=== PATIENT | female | born 1990 | race Caucasian/White ===

== ENCOUNTER 2021-04-18 17:01 | Inpatient (IN) ==
[2021-04-18] MEDS ORDERED: SODIUM CHLORIDE 0.9% 1000ML 1,000 ML IV SCH (17:15)
[2021-04-18] MEDS ORDERED: SODIUM CHLORIDE 0.9% 1000ML 1,000 ML IV STA (17:22)
[2021-04-18 17:28] LABS: Hematocrit (blood only) 42.4 % (37-47); Hemoglobin 15.1 g/dL (12.0-16.0); Mean Corpuscular Hemoglobin 33.6 pg (25-34); Mean Corpuscular Hgb Conc 35.6 g/dL (32-36); Mean Corpuscular Volume 94.2 fL (80-100); Mean Platelet Volume 9.6 fL (7.4-10.4); Platelet Count 263 K/uL (130-400); RDW Coefficient of Variation 12.4 % (11.5-14.5); RDW Standard Deviation 42.3 fL (36.4-46.3); White Blood Count 20.04 K/uL (4.8-10.8)
[2021-04-18 17:30] LABS: Base Excess ABG -8.9 mEq/L (-9-1.8); HCO3 ABG 17 mmol/L (19-24); Oxygen Saturation ABG 99.7 % (90-95); PCO2 ABG 37 mmHg (35-46); PO2 ABG 280 mmHg (80-95); pH ABG 7.28 (7.35-7.45)
[2021-04-18 17:41] LABS: Allen Test Pos (Pos)
[2021-04-18 17:43] LABS: Appearance Urine Clear (Clear); Bacteria Urine Automated Negative (Negative); Bilirubin Urine Negative (Negative); Blood Urine Negative (Negative); Color Urine Yellow; Glucose Urine UA 1+ (Negative); Ketones Urine Trace (Negative); Leukocyte Esterase Urine Negative (Negative); Nitrite Urine Negative (Negative); Protein Urine 1+ (Negative); RBC Urine Automated 0-4 /hpf (0-4); Specific Gravity Urine 1.016 (1.000-1.030); Urobilinogen Urine Negative (Negative); pH Urine 5.5 (4.5-7.5)
--- NOTE | 2021-04-18 17:43 | XRay Report ---
XR chest 1V portable CLINICAL HISTORY: Dyspnea TECHNIQUE: Single frontal radiograph of the chest was obtained. Comparison: None available at the time of this dictation. FINDINGS: No lines and tubes are seen. The cardiomediastinal silhouette is normal. The lungs are clear. No evid ence of pleural effusion or pneumothorax. IMPRESSION: No acute chest disease. ACT 112: Negative or not required by law. Electronically signed by: John Sanders M.D. 04/18/2021 5:42 PM
[2021-04-18 17:50] LABS: Pregnancy Test, Serum Negative (Negative)
[2021-04-18 17:51] LABS: Albumin Globulin Ratio 1.4 (0.9-2); Albumin Level 4.2 gm/dl (3.4-5.0); BUN Creatinine Ratio 13.1 (10-20); Bilirubin,Total 0.2 mg/dl (0.2-1.0); Calcium 8.8 mg/dl (8.5-10.1); Creatinine Clr Calc Pharmacy 96.5 ml/min; Est GFR (African American) 105.8 ml/min; Est GFR (Non-African American) 91.3 ml/min; Globulin 3.1 gm/dl (2.5-4.0); Magnesium 2.6 mg/dl (1.7-2.4); Potassium 4.1 mmol/L (3.5-5.1); Total Protein 7.3 gm/dl (6.0-8.3)
--- NOTE | 2021-04-18 17:51 | Emergency Department Note ---
Impression & Plan Toxic effect of carbon monoxide, Hypothermia, AMS (altered mental status), Leukocytosis ED Provider Note INFORMANT: Patient and EMS. Also patient's significant other. ED PROVIDER(S): Cecil Hardy MD CHIEF COMPLAINT: Altered mental status and carbon oxide exposure PLAN: Disposition: Admitted Condition: Good Outpatient prescription management: none Referral: None MEDICAL DECISION MAKING: Patient presented to the emergency department because of altered mental status and carbon monoxide exposure. She was also hypothermic. Upon arrival she was continued on a nonrebreather. Her mental status was improving from initial EMS contact. She had IV fluids administered via fluid warmer. A bear hugger warming blanket was applied. ECG was performed and showed a sinus tachycardia w ithout dysrhythmia. Cardiac monitoring showed no dysrhythmia. The patient was uncomfortable as she needed to urinate. A Sorenson catheter was placed to monitor her urine output and temperature as she was fairly hypothermic. Patient's CBC showed a significant leukocytosis of 20,000 which is likely a stress response Carboxyhemoglobin was low at 1.4 however this was at least 45 minutes or longer on the nonrebreather. Patient's lactate was significant elevated at 5.1. This is likely due to hypoperfusion. COVID-negative. The carboxyhemoglobin was done on an ABG. Lab initially cleared this but then noted they were unsure if processing on arterial blood would make a difference and a repeat venous carboxyhemoglobin was performed. This was 0.4. Was on a nonrebreather that entire time. On reassessment she was feeling much better. No headache or chest pain. No neurologic issues. Further management will be necessary in the hospital to monitor the patient given her significant exposure and hypothermia which has improved significantly with warming. Consultation was made with the [facility] Hospitalist service. Case was discussed and diagnostics were reviewed. The patient was evaluated in the ER and admitted to Dr. Hodges's team. Triage Nursing notes reviewed and agree them. Vital Signs: reviewed and remarkable for tachycardia Differential diagnosis: Carbon monoxide exposure, trauma, infection, hypoglycemia, electrolyte ab normalities, overdose, toxicologic, cardiac sources, intracerebral event, neurologic, trauma, as well as other pathologies. Diagnostics interpreted by me: ECG: Twelve-lead ECG reveals sinus tachycardia [address] elevation or depression. No PACs or PVCs. Normal axis and QRS. Cardiac Monitoring: Cardiac monitoring ordered by me: The patient was placed on continuous cardiac monitoring and observed. It revealed a normal sinus rhythm at 80 beats per minute without ectopy or evidence of dysrhythmia. Imaging studies: Chest x-ray. Findings: A chest x-ray was performed and revealed no pneumothorax, effusion, infiltrate, pulmonary edema, free air under the diaphragm, or wide mediastinum. Impression: No acute disease. HPI: The patient is a 31 year old female with a past medical history of scoliosis who presents to the Emergency Room due to altered mental status and carbon monoxide exposure. The patient was found outside her residence lying in the snow and was altered. EMS was summoned. Apparently a generator was running in the residence in the basement. Fire EMS noted the first floor carbon monoxide reading was 1029. The basement reading was above the upper limits of metering. EMS attended to the patient. She was hypothermic with a core temperature of 92. She was tachycardic and hypotensive. She was altered. They were unable to obtain peripheral IV access but did place an IO in the left humeral head. Patient was given a bolus of IV lidocaine to help with the discomfort of fluid administration. Warm fluids were administered. External warming was initiated. Cardiac monitoring showed a sinus tachycardia. No dysrhythmia per EMS. Patient's blood pressure improved with fluid bolus. She was started immediately on high flow oxygen via nonrebreather. EMS noted the cooximeter measured a concentration of 25% for the patient. She began to be more responsive and interact with EMS. Vital signs improved. Tachycardia imp roved. Upon arrival to the ER the patient was more alert. She was uncomfortable as she noted she needed to urinate but denied any other pain. No significant headache. The patient denies any recent trauma or illness. She does use Suboxone but this is from chronic opioid dependence secondary to s coliosis issues as a child. Patient did note some numbness and tingling in her feet. Any pressure or light touch of the feet. They were very cold to the touch. Noted the patient was unable to feelPatient denies any nausea, vomiting, chest pain, difficulty breathing, recent fever or URI symptoms, diarrhea, or other complaints. ROS: See above HPI for pertinent positives & negatives. A total of 10 systems reviewed and were otherwise negative. PAST MEDICAL HISTORY:See Below , scoliosis PAST SURGICAL HISTORY:See Below, FAMILY HISTORY:See Below SOCIAL HISTORY:See Below, denies illicit drug use HOME MEDICATIONS:See Below ALLERGIES:See Below VITALS:See Below PHYSICAL EXAMINATION: GENERAL: Awake, semi-alert, uncomfortable appearing, anxious and in mild distress HENT: Normocephalic, atraumatic. Oropharynx unremarkable. EYES: Normal conjunctiva. Sclera non-icteric. NECK: Inspection normal. Non-tender. Supple. No nuchal rigidity. FROM. No mass es. RESPIRATORY: Clear to auscultation. No wheezes. No rales. Normal respiratory effort. CARDIAC: Borderline tachycardic rate. Normal rhythm. No murmurs. No rubs. Extremities warm and well perfused. Pulses equal. No JVD. GI: Soft, non-distended. Mild suprapubic tenderness to palpation. No rebound or guarding. No masses. RECTAL: Deferred. MUSCULOSKELETAL: Atraumatic. Chest examination reveals no tenderness. The back is symmetrical on inspection without obvious abnormality. There is no CVA te nderness to palpation. No joint edema. LOWER EXTREMITIES: Cool to the touch. Calves are equal size bilaterally and non-tender. No edema. Mildly cyanotic toes with sluggish cap refill but otherwise no discoloration. No clear evidence of frostbite NEURO: Normal sensorium. No sensory or motor deficits noted. Patient can feel her distal extremities and digits at this point in time. SKIN: No rash or jaundice noted. Cecil Hardy MD Past Med/Surg History Medical History Scoliosis Twin (10/27/13) Surgical History Delivery by section Family History Other Lung disease Seizures Social History (Updated 04/18/21 @ 19:13 by Kenia Saha PA-C) Smoking Status: Current every day smoker packs per day: 0.5; Preferred Language: Turkmen Feels Safe at Home: Yes Allergies Allergies Allergy/AdvReac Type Severity Reaction Status Date / Time No Known Allergies Allergy Verified 04/18/21 18:18 Home Meds Home Medications Medication Instructions Recorded Confirmed buprenorphine 8 mg-naloxone 2 mg 1 film SUBLINGUAL BID 04/18/21 04/18/21 sublingual film Results & Data (ED) Vital Signs Vital Signs - 24 hr 04/18/21 17:01 04/18/21 17:11 04/18/21 17:15 Temperature 32.1 C L Temperature Source Rectal Pulse Rate 81 92 H Pulse Rate [Right Apical] Pulse Rate from SpO2 Sensor Respiratory Rate 32 H 24 Blood Pressure 147/97 H Blood Pressure [Right Arm] Blood Pressure Mean 113 Blood Pressure Mean [Right Arm] Pulse Oximetry Oxygen Delivery Method Oxygen Flow Rate Sepsis New/Unexplained Change in Mental Status Sepsis Action Taken by Nursing 04/18/21 17:20 04/18/21 17:25 04/18/21 17:27 Temperature Temperature Source Pulse Rate 94 H 86 Pulse Rate [Right Apical] 86 Pulse Rate from SpO2 Sensor Respiratory Rate 35 H 24 20 Blood Pressure Blood Pressure [Right Arm] 147/87 H Blood Pressure Mean Blood Pressure Mean [Right Arm] 107 Pulse Oximetry Oxygen Delivery Method Oxygen Flow Rate Sepsis New/Unexplained Change in Mental Status Sepsis Action Taken by Nursing 04/18/21 17:30 04/18/21 17:31 04/18/21 17:35 Temperature 34.4 C L Temperature Source Sorenson Cath ( Temp Sensing) Pulse Rate 88 80 Pulse Rate [Right Apical] 86 Pulse Rate from SpO2 Sensor Respiratory Rate 25 H 21 13 Blood Pressure Blood Pressure [Right Arm] 150/92 H Blood Pressure Mean Blood Pressure Mean [Right Arm] 111 Pulse Oximetry Oxygen Delivery Method Oxygen Flow Rate Sepsis New/Unexplained Change in Mental Status Yes Sepsis Action Taken by Nursing No Action Required 04/18/21 17:40 04/18/21 17:45 04/18/21 17:50 Temperature 35.6 C L 35.7 C L Temperature Source Sorenson Cath ( Temp Sensing) Pulse Rate 82 81 80 Pulse Rate [Right Apical] Pulse Rate from SpO2 Sensor Respiratory Rate 17 22 Blood Pressure 130/91 Blood Pressure [Right Arm] Blood Pressure Mean 104 Blood Pressure Mean [Right Arm] Pulse Oximetry 100 Oxygen Delivery Method Non-rebreather Oxygen Flow Rate 15 Sepsis New/Unexplained Change in Mental Status Sepsis Action Taken by Nursing 04/18/21 17:55 04/18/21 17:56 04/18/21 18:00 Temperature 35.8 C L 35.7 C L Temperature Source Pulse Rate 82 80 Pulse Rate [Right Apical] Pulse Rate from SpO2 Sensor 81 81 Respiratory Rate 19 19 Blood Pressure 130/90 Blood Pressure [Right Arm] Blood Pressure Mean 103 Blood Pressure Mean [Right Arm] Pulse Oximetry 100 100 100 Oxygen Delivery Method Non-rebreather Non-rebreather Non-rebreather Oxygen Flow Rate 15 15 15 Sepsis New/Unexplained Change in Mental Status Sepsis Action Taken by Nursing 04/18/21 18:05 04/18/21 18:08 04/18/21 18:10 Temperature 35.7 C L 35.7 C L Temperature Source Pulse Rate 83 80 Pulse Rate [Right Apical] Pulse Rate from SpO2 Sensor 82 76 Respiratory Rate 19 20 Blood Pressure 123/84 Blood Pressure [Right Arm] Blood Pressure Mean 97 Blood Pressure Mean [Right Arm] Pulse Oximetry 99 99 Oxygen Delivery Method Non-rebreather Non-rebreather Non-rebreather Oxygen Flow Rate 15 15 15 Sepsis New/Unexplained Change in Mental Status Sepsis Action Taken by Nursing 04/18/21 18:15 04/18/21 18:20 04/18/21 18:25 Temperature 35.6 C L 35.5 C L 35.7 C L Temperature Source Pulse Rate 86 85 79 Pulse Rate [Right Apical] Pulse Rate from SpO2 Sensor 84 82 79 Respiratory Rate 22 14 19 Blood Pressure 128/65 Blood Pressure [Right Arm] Blood Pressure Mean 86 Blood Pressure Mean [Right Arm] Pulse Oximetry 100 94 98 Oxygen Delivery Method Non-rebreather Non-rebreather Non-rebreather Oxygen Flow Rate 15 15 15 Sepsis New/Unexplained Change in Mental Status Sepsis Action Taken by Nursing 04/18/21 18:30 04/18/21 18:35 04/18/21 18:40 Temperature 35.6 C L 35.7 C L 35.9 C L Temperature Source Pulse Rate 77 81 80 Pulse Rate [Right Apical] Pulse Rate from SpO2 Sensor 77 80 80 Respiratory Rate 20 16 21 Blood Pressure 111/73 Blood Pressure [Right Arm] Blood Pressure Mean 85 Blood Pressure Mean [Right Arm] Pulse Oximetry 97 96 98 Oxygen Delivery Method Non-rebreather Oxygen Flow Rate 15 Sepsis New/Unexplained Change in Mental Status Sepsis Action Taken by Nursing 04/18/21 18:45 04/18/21 18:58 04/18/21 19:00 Temperature 35.8 C L Temperature Source Pulse Rate 81 81 87 Pulse Rate [Right Apical] Pulse Rate from SpO2 Sensor 81 81 85 Respiratory Rate 22 16 21 Blood Pressure Blood Pressure [Right Arm] Blood Pressure Mean Blood Pressure Mean [Right Arm] Pulse Oximetry 98 96 94 Oxygen Delivery Method Oxymask Oxygen Flow Rate 6 Sepsis New/Unexplained Change in Mental Status Sepsis Action Taken by Nursing Laboratory Data Result diagrams: 04/18/21 17:16 04/18/21 17:16 Lab Results 04/18/21 04/18/21 04/18/21 Range/Units 17:15 17:16 17:16 WBC 20.04 H (4.8-10.8) K/uL RBC 4.50 (4.2-5.4) M/uL Hgb 15.1 (12.0-16.0) g/dL Hct 42.4 (37-47) % MCV 94.2 (80-100) fL MCH 33.6 (25-34) pg MCHC 35.6 (32-36) g/dL RDW Std Deviation 42.3 (36.4-46.3) fL RDW Coeff of Danny 12.4 (11.5-14.5) % Plt Count 263 (130-400) K/uL MPV 9.6 (7.4-10.4) fL Immature Gran % (Auto) 0.9 % Neut % (Auto) 86.1 % Lymph % (Auto) 8.6 % [place] % (Auto) 3.5 % Eos % (Auto) 0.7 % Baso % (Auto) 0.2 % Neut # (Auto) 17.25 H (1.4-6.5) K/uL Lymph # (Auto) 1.72 (1.2-3.4) K/uL [place] # (Auto) 0.70 H (0.11-0.59) K/uL Eos # (Auto) 0.14 (0-0.5) K/uL Baso # (Auto) 0.05 (0-0.2) K/uL Immature Gran # (Auto) 0.18 H (0.00-0.02) K/uL ABG pH 7.28 L (7.35-7.45) ABG pCO2 37 (35-46) mmHg ABG pO2 280 H (80-95) mmHg ABG HCO3 17 L (19-24) mmol/L ABG O2 Saturation 99.7 H (90-95) % ABG Base Excess -8.9 (-9-1.8) mEq/L Jozef Test Pos (Pos) Carboxyhemoglobin % [facility] Barometric Pressure 724.5 mm/Hg Oxygen Given 15L Sodium 137 (136-145) mmol/L Potassium 4.1 (3.5-5.1) mmol/L Chloride 110 H (98-107) mmol/L Carbon Dioxide 16 L (21-32) mmol/L Anion Gap 11 (3-11) BUN 11 (6-23) mg/dl Creatinine 0.84 (0.6-1.2) mg/dl Est Cr Clr Drug Dosing 96.5 ml/min Est GFR ( Amer) 105.8 ml/min Est GFR (Non-Af Amer) 91.3 ml/min BUN/Creatinine Ratio 13.1 (10-20) Glucose 71 (70-99(Fasting)) mg/dl Lactate (0.4-2.0) mmol/L Calcium 8.8 (8.5-10.1) mg/dl Magnesium 2.6 H (1.7-2.4) mg/dl Total Bilirubin 0.2 (0.2-1.0) mg/dl AST 21 (13-39) U/L ALT 15 (7-52) U/L Alkaline Phosphatase 49 (34-104) U/L Troponin I 0.04 (0-0.04) ng/ml Total Protein 7.3 (6.0-8.3) gm/dl Albumin 4.2 (3.4-5.0) gm/dl Globulin 3.1 (2.5-4.0) gm/dl Albumin/Globulin Ratio 1.4 (0.9-2) HCG, Qual (Negative) Urine Color Urine Appearance (Clear) Urine pH (4.5-7.5) Ur Specific [place] (1.000-1.030) Urine Protein (Negative) Urine Glucose (UA) (Negative) Urine Ketones (Negative) Urine Blood (Negative) Urine Nitrite (Negative) Urine Bilirubin (Negative) Urine Urobilinogen (Negative) Ur Leukocyte Esterase (Negative) Urine WBC (Auto) (0-5) /hpf Urine RBC (Auto) (0-4) /hpf U Hyaline Cast (Auto) (0-5) /lpf U Epithel Cells (Auto) (0-5) /lpf Urine Bacteria (Auto) (Negative) Urine Opiates Screen (Neg) Ur Methadone, Qual (Neg) Urine Barbiturates (Neg) Ur Phencyclidine (PCP) (Neg) U Amphetamin/Meth Scrn (Neg) MDMA (Ecstasy) Screen (Neg) U Benzodiazepines Scrn (Neg) Ur Cocaine Metabolite (Neg) U Marijuana (THC) Screen (Neg) SARS-CoV-2, RNA, NAAT (NEGATIVE) 04/18/21 04/18/21 04/18/21 Range/Units 17:16 17:16 17:18 WBC (4.8-10.8) K/uL RBC (4.2-5.4) M/uL Hgb (12.0-16.0) g/dL Hct (37-47) % MCV (80-100) fL MCH (25-34) pg MCHC (32-36) g/dL RDW Std Deviation (36.4-46.3) fL RDW Coeff of Danny (11.5-14.5) % Plt Count (130-400) K/uL MPV (7.4-10.4) fL Immature Gran % (Auto) % Neut % (Auto) % Lymph % (Auto) % [place] % (Auto) % Eos % (Auto) % Baso % (Auto) % Neut # (Auto) (1.4-6.5) K/uL Lymph # (Auto) (1.2-3.4) K/uL [place] # (Auto) (0.11-0.59) K/uL Eos # (Auto) (0-0.5) K/uL Baso # (Auto) (0-0.2) K/uL Immature Gran # (Auto) (0.00-0.02) K/uL ABG pH (7.35-7.45) ABG pCO2 (35-46) mmHg ABG pO2 (80-95) mmHg ABG HCO3 (19-24) mmol/L ABG O2 Saturation (90-95) % ABG Base Excess (-9-1.8) mEq/L Jozef Test (Pos) Carboxyhemoglobin 1.4 % THgb Barometric Pressure mm/Hg Oxygen Given Sodium (136-145) mmol/L Potassium (3.5-5.1) mmol/L Chloride (98-107) mmol/L Carbon Dioxide (21-32) mmol/L Anion Gap (3-11) BUN (6-23) mg/dl Creatinine (0.6-1.2) mg/dl Est Cr Clr Drug Dosing ml/min Est GFR ( Amer) ml/min Est GFR (Non-Af Amer) ml/min BUN/Creatinine Ratio (10-20) Glucose (70-99(Fasting)) mg/dl Lactate 5.1 H* (0.4-2.0) mmol/L Calcium (8.5-10.1) mg/dl Magnesium (1.7-2.4) mg/dl Total Bilirubin (0.2-1.0) mg/dl AST (13-39) U/L ALT (7-52) U/L Alkaline Phosphatase (34-104) U/L Troponin I (0-0.04) ng/ml Total Protein (6.0-8.3) gm/dl Albumin (3.4-5.0) gm/dl Globulin (2.5-4.0) gm/dl Albumin/Globulin Ratio (0.9-2) HCG, Qual Negative (Negative) Urine Color Urine Appearance (Clear) Urine pH (4.5-7.5) Ur Specific [place] (1.000-1.030) Urine Protein (Negative) Urine Glucose (UA) (Negative) Urine Ketones (Negative) Urine Blood (Negative) Urine Nitrite (Negative) Urine Bilirubin (Negative) Urine Urobilinogen (Negative) Ur Leukocyte Esterase (Negative) Urine WBC (Auto) (0-5) /hpf Urine RBC (Auto) (0-4) /hpf U Hyaline Cast (Auto) (0-5) /lpf U Epithel Cells (Auto) (0-5) /lpf Urine Bacteria (Auto) (Negative) Urine Opiates Screen (Neg) Ur Methadone, Qual (Neg) Urine Barbiturates (Neg) Ur Phencyclidine (PCP) (Neg) U Amphetamin/Meth Scrn (Neg) MDMA (Ecstasy) Screen (Neg) U Benzodiazepines Scrn (Neg) Ur Cocaine Metabolite (Neg) U Marijuana (THC) Screen (Neg) SARS-CoV-2, RNA, NAAT (NEGATIVE) 04/18/21 04/18/21 04/18/21 Range/Units 17:20 17:20 17:55 WBC (4.8-10.8) K/uL RBC (4.2-5.4) M/uL Hgb (12.0-16.0) g/dL Hct (37-47) % MCV (80-100) fL MCH (25-34) pg MCHC (32-36) g/dL RDW Std Deviation (36.4-46.3) fL RDW Coeff of Danny (11.5-14.5) % Plt Count (130-400) K/uL MPV (7.4-10.4) fL Immature Gran % (Auto) % Neut % (Auto) % Lymph % (Auto) % [place] % (Auto) % Eos % (Auto) % Baso % (Auto) % Neut # (Auto) (1.4-6.5) K/uL Lymph # (Auto) (1.2-3.4) K/uL [place] # (Auto) (0.11-0.59) K/uL Eos # (Auto) (0-0.5) K/uL Baso # (Auto) (0-0.2) K/uL Immature Gran # (Auto) (0.00-0.02) K/uL ABG pH (7.35-7.45) ABG pCO2 (35-46) mmHg ABG pO2 (80-95) mmHg ABG HCO3 (19-24) mmol/L ABG O2 Saturation (90-95) % ABG Base Excess (-9-1.8) mEq/L Jozef Test (Pos) Carboxyhemoglobin % THgb Barometric Pressure mm/Hg Oxygen Given Sodium (136-145) mmol/L Potassium (3.5-5.1) mmol/L Chloride (98-107) mmol/L Carbon Dioxide (21-32) mmol/L Anion Gap (3-11) BUN (6-23) mg/dl Creatinine (0.6-1.2) mg/dl Est Cr Clr Drug Dosing ml/min Est GFR ( Amer) ml/min Est GFR (Non-Af Amer) ml/min BUN/Creatinine Ratio (10-20) Glucose (70-99(Fasting)) mg/dl Lactate (0.4-2.0) mmol/L Calcium (8.5-10.1) mg/dl Magnesium (1.7-2.4) mg/dl Total Bilirubin (0.2-1.0) mg/dl AST (13-39) U/L ALT (7-52) U/L Alkaline Phosphatase (34-104) U/L Troponin I (0-0.04) ng/ml Total Protein (6.0-8.3) gm/dl Albumin (3.4-5.0) gm/dl Globulin (2.5-4.0) gm/dl Albumin/Globulin Ratio (0.9-2) HCG, Qual (Negative) Urine Color Yellow Urine Appearance Clear (Clear) Urine pH 5.5 (4.5-7.5) Ur Specific [place] 1.016 (1.000-1.030) Urine Protein 1+ H (Negative) Urine Glucose (UA) 1+ H (Negative) Urine Ketones Trace H (Negative) Urine Blood Negative (Negative) Urine Nitrite Negative (Negative) Urine Bilirubin Negative (Negative) Urine Urobilinogen Negative (Negative) Ur Leukocyte Esterase Negative (Negative) Urine WBC (Auto) 1-5 (0-5) /hpf Urine RBC (Auto) 0-4 (0-4) /hpf U Hyaline Cast (Auto) 5-10 H (0-5) /lpf U Epithel Cells (Auto) 5-10 H (0-5) /lpf Urine Bacteria (Auto) Negative (Negative) Urine Opiates Screen Neg (Neg) Ur Methadone, Qual Neg (Neg) Urine Barbiturates Neg (Neg) Ur Phencyclidine (PCP) Neg (Neg) U Amphetamin/Meth Scrn Pos H (Neg) MDMA (Ecstasy) Screen Neg (Neg) U Benzodiazepines Scrn Neg (Neg) Ur Cocaine Metabolite Neg (Neg) U Marijuana (THC) Screen Neg (Neg) SARS-CoV-2, RNA, NAAT NEGATIVE (NEGATIVE) 04/18/21 Range/Units 18:05 WBC (4.8-10.8) K/uL RBC (4.2-5.4) M/uL Hgb (12.0-16.0) g/dL Hct (37-47) % MCV (80-100) fL MCH (25-34) pg MCHC (32-36) g/dL RDW Std Deviation (36.4-46.3) fL RDW Coeff of Danny (11.5-14.5) % Plt Count (130-400) K/uL MPV (7.4-10.4) fL Immature Gran % (Auto) % Neut % (Auto) % Lymph % (Auto) % [place] % (Auto) % Eos % (Auto) % Baso % (Auto) % Neut # (Auto) (1.4-6.5) K/uL Lymph # (Auto) (1.2-3.4) K/uL [place] # (Auto) (0.11-0.59) K/uL Eos # (Auto) (0-0.5) K/uL Baso # (Auto) (0-0.2) K/uL Immature Gran # (Auto) (0.00-0.02) K/uL ABG pH (7.35-7.45) ABG pCO2 (35-46) mmHg ABG pO2 (80-95) mmHg ABG HCO3 (19-24) mmol/L ABG O2 Saturation (90-95) % ABG Base Excess (-9-1.8) mEq/L Jozef Test (Pos) Carboxyhemoglobin 0.4 % THgb Barometric Pressure mm/Hg Oxygen Given Sodium (136-145) mmol/L Potassium (3.5-5.1) mmol/L Chloride (98-107) mmol/L Carbon Dioxide (21-32) mmol/L Anion Gap (3-11) BUN (6-23) mg/dl Creatinine (0.6-1.2) mg/dl Est Cr Clr Drug Dosing ml/min Est GFR ( Amer) ml/min Est GFR (Non-Af Amer) ml/min BUN/Creatinine Ratio (10-20) Glucose (70-99(Fasting)) mg/dl Lactate (0.4-2.0) mmol/L Calcium (8.5-10.1) mg/dl Magnesium (1.7-2.4) mg/dl Total Bilirubin (0.2-1.0) mg/dl AST (13-39) U/L ALT (7-52) U/L Alkaline Phosphatase (34-104) U/L Troponin I (0-0.04) ng/ml Total Protein (6.0-8.3) gm/dl Albumin (3.4-5.0) gm/dl Globulin (2.5-4.0) gm/dl Albumin/Globulin Ratio (0.9-2) HCG, Qual (Negative) Urine Color Urine Appearance (Clear) Urine pH (4.5-7.5) Ur Specific [place] (1.000-1.030) Urine Protein (Negative) Urine Glucose (UA) (Negative) Urine Ketones (Negative) Urine Blood (Negative) Urine Nitrite (Negative) Urine Bilirubin (Negative) Urine Urobilinogen (Negative) Ur Leukocyte Esterase (Negative) Urine WBC (Auto) (0-5) /hpf Urine RBC (Auto) (0-4) /hpf U Hyaline Cast (Auto) (0-5) /lpf U Epithel Cells (Auto) (0-5) /lpf Urine Bacteria (Auto) (Negative) Urine Opiates Screen (Neg) Ur Methadone, Qual (Neg) Urine Barbiturates (Neg) Ur Phencyclidine (PCP) (Neg) U Amphetamin/Meth Scrn (Neg) MDMA (Ecstasy) Screen (Neg) U Benzodiazepines Scrn (Neg) Ur Cocaine Metabolite (Neg) U Marijuana (THC) Screen (Neg) SARS-CoV-2, RNA, NAAT (NEGATIVE) Administered Medications Sodium Chloride (Nss 1000ml) 1,000 mls @ 200 mls/hr IV .Q5H STA Stop: 04/18/21 22:21 Last Admin: 04/18/21 17:59 Dose: 200 mls/hr Documented by: [id number] Discontinued Medications Sodium Chloride (Nss 1000ml) 1,000 mls @ 999 mls/hr IV .Q1H1M GLENN Stop: 04/18/21 18:15 Last Admin: 04/18/21 18:30 Dose: Not Given Documented by: [id number] Imaging Data Radiologist's Impression: Chest X-Ray 04/18/21 17:03 XR chest 1V portable CLINICAL HISTORY: Dyspnea TECHNIQUE: Single frontal radiograph of the chest was obtained. Comparison: None available at the time of this dictation. FINDINGS: No lines and tubes are seen. The cardiomediastinal silhouette is normal. The lungs are clear. No evidence of pleural effusion or pneumothorax. IMPRESSION: No acute chest disease. ACT 112: Negative or not required by law. Electronically signed by: John Sanders M.D. 04/18/2021 5:42 PM Discharge Plan Visit Data Chief Complaint: Carbon Monoxide Exposure Stated Complaint: Carbon Monoxide Exposure ED Provider: Cecil Hardy Discharge Problem: Toxic effect of carbon monoxide, Hypothermia, AMS (altered mental status), Leukocytosis Forms Stand Alone Forms: My [facility] Prescriptions Prescriptions: No Action buprenorphine-naloxone 8-2 mg film 1 film sublingual BID RF: 0 Referrals Referrals: PCP,NO [Primary Care Provider] -
[2021-04-18 17:52] LABS: Troponin I 0.04 ng/ml (0-0.04)
[2021-04-18 17:53] LABS: Basophils # (auto) 0.05 K/uL (0-0.2); Basophils % (auto) 0.2 %; Eosinophils # (auto) 0.14 K/uL (0-0.5); Eosinophils % (auto) 0.7 %; Immature Granulocytes # (auto) 0.18 K/uL (0.00-0.02); Immature Granulocytes % (auto) 0.9 %; Lymphocytes # (auto) 1.72 K/uL (1.2-3.4); Lymphocytes % (auto) 8.6 %; Monocytes % (auto) 3.5 %; Neutrophils # (auto) 17.25 K/uL (1.4-6.5); Neutrophils % (auto) 86.1 %
[2021-04-18 18:18] LABS: Amphetamines+Metham, Urine Pos (Neg); Barbiturates, Urine Neg (Neg); Benzodiazepine, Urine Neg (Neg); Cocaine, Urine Neg (Neg); MDMA (Ecstacy), Urine Neg (Neg); Methadone, Urine Neg (Neg); Opiate, Urine Neg (Neg); Phencyclidine, Urine Neg (Neg)
--- NOTE | 2021-04-18 18:38 | History & Physical Report ---
Date of Service April 18, 2021 Assessment & Plan (1) AMS (altered mental status): (2) Toxic effect of carbon monoxide: (3) Syncope: Plan: This is a 31yo F with a PMH of scoliosis, tobacco use who presents with AMS in setting of carbon monoxide exposure. Carbon monoxide exposure from basement with generator running indoors Patient went outside once she became dizzy and had syncopal event, found lying in the snow, minimally responsive EMS noted the cooximeter measured a concentration of 25% for the patient Mentation and vitals have improved on non-rebreather and is back to mentation baseline Leukocytosis of 20, initial ABG pH of 7.28, lactate of 5 ECG with sinus tachycardia of 106, troponin negative Repeat carboxyhemoglobin improved to 0.4%, transitioned to oxymask 6L (4) Hypothermia: Plan: Initial core temperature of 33.3 C when found in snow. Improved with warming fluids, now 35.7 C [address] hugger in place, continue monitoring (5) Lactic acidosis: (6) Leukocytosis: Plan: Lactate of 5.1, leukocytosis of 14. Likely reactive given CO, hypothermia, hypoperfusion No clinical concern for infection - CXR without acute process, UA unremarkable. No indication for abx at this time Repeat lactate this evening, wbc in AM (7) Scoliosis: Plan: Continue home Suboxone BID DVT Ppx: han eden Code status: FULL PCP: Kristel Dispo: Admitted to PCU Patient seen in collaboration with Dr. Da Silva. Please see addendum. History of Present Illness Chief Complaint: CO exposure Primary Care Provider: NO PCP This is a 31yo F with a PMH of scoliosis, tobacco use who presents with AMS in setting of carbon monoxide exposure. The patient was dropped off at a friend's house earlier today, which had a generator running indoors in the basement. Patient is unsure how long she was inside before becoming lightheaded with visual changes, at which point she ran outside into the snow and lost con sciousness. Patient is unsure how low she was lying in the snow before she came to and walked to a neighbors house, who called EMS due to her altered state. Was initially hypothermic with a core temperature of 92 as well as tachycardic and hypotensive. EMS noted the cooximeter measured a concentration of 25% for the patient. Vital signs improved with non-rebreather and administration of warm fluids. Mentation was better by time of arrival and is back to baseline by time of evaluation. BP and HR now within normal range. Patient is saturation at 98% on 15 L non-rebreather. Currently denies headache or lightheadedness. No fever or chills. No chest pain, palpitations, nausea, vomiting, abdominal pain, dysuria, diarrhea or constipation. No recent illness. Only home medication is Suboxone, which she takes for history of scoliosis. Allergies Allergy/AdvReac Type Severity Reaction Status Date / Time No Known Allergies Allergy Verified 04/18/21 18:18 Home Medications Medication Instructions Recorded Confirmed Type buprenorphine 8 mg-naloxone 2 mg 1 film SUBLINGUAL BID 04/18/21 04/18/21 History sublingual film Past Med/Surg History Medical History Scoliosis Twin (10/27/13) Surgical History Delivery by section Family History Other Lung disease Seizures Social History (Updated 04/18/21 @ 19:13 by Kenia Saha PA-C) Smoking Status: Current every day smoker packs per day: 0.5; Second Hand Exposure: No; Do You Dip or Chew Tobacco: No; Tobacco Cessation Education Requested by Patient: No Hx Alcohol Use: Yes Hx Substance Use: No Preferred Language: Georgian Communication Ability: Effective Dot Compliance Specialist Required: No Beliefs That Will Affect Care: None Current Living Situation: Other Current Living Situation Comment: Friend Other Information That Helps Us Care for You: No Feels Safe at Home: Yes Safety Concerns: Feels Safe At This Time Review of Systems Review of Systems: At least ten systems reviewed and negative except as noted in the HPI. Physical Exam Physical Exam: General Appearance: WD/WN, vitals as above, NAD, sitting up in bed, pleasant, conversing easily, wearing non-rebreather Head: normocephalic, atraumatic Eyes: normal inspection, PERRL, conjunctivae normal, anicteric sclerae ENT: external ear and nose normal, oropharynx normal Neck: normal visual inspection, trachea midline, no thyromegaly Respiratory: normal respiratory effort, lungs clear to auscultation, no wheeze, rales, rhonchi. No accessory muscle use Cardiovascular: regular rate, rhythm, no murmur, normal peripheral pulses, no BLE edema. Vessels: no JVD Chest: normal inspection of chest Abdomen/GI: normal bowel sounds, soft, nontender, no hepatosplenomegaly Extremities/Musculoskeletal: no cyanosis or clubbing, extremities motor strength 5/5 Neurologic: PERRL, EOMI, accommodation nl, no face palsy, no dysarthria, CN's II-XI intact bilaterally and moves all extremities Psychiatric: A+Ox3, euthymic affect Skin: no rashes, normal color, warm/dry Results & Data Results & Data ([facility]) Vital Signs (Past 12 Hours) Vital Signs Temp Pulse Pulse Resp BP BP Pulse Ox 04/18/21 18:15 35.6 C L 86 22 100 04/18/21 18:10 35.7 C L 80 20 123/84 99 04/18/21 18:05 35.7 C L 83 19 99 04/18/21 18:00 35.7 C L 80 19 130/90 100 04/18/21 17:56 100 04/18/21 17:55 35.8 C L 82 19 100 04/18/21 17:50 35.7 C L 80 22 130/91 100 04/18/21 17:45 35.6 C L 81 17 04/18/21 17:40 82 23 04/18/21 17:35 80 13 04/18/21 17:31 86 21 150/92 H 04/18/21 17:30 34.4 C L 88 25 H 04/18/21 17:27 86 20 147/87 H 04/18/21 17:25 86 24 04/18/21 17:20 94 H 35 H 04/18/21 17:15 92 H 24 147/97 H 04/18/21 17:11 81 32 H 04/18/21 17:01 32.1 C L Laboratory Results Short CBC 04/18/21 Range/Units 17:16 WBC 20.04 H (4.8-10.8) K/uL Hgb 15.1 (12.0-16.0) g/dL Hct 42.4 (37-47) % Plt Count 263 (130-400) K/uL BMP 04/18/21 17:16 Sodium 137 Potassium 4.1 Chloride 110 H Carbon Dioxide 16 L BUN 11 Creatinine 0.84 Glucose 71 Calcium 8.8 Cardiac Enzymes 04/18/21 Range/Units 17:16 Troponin I 0.04 (0-0.04) ng/ml Liver Function 04/18/21 Range/Units 17:16 Total Bilirubin 0.2 (0.2-1.0) mg/dl AST 21 (13-39) U/L ALT 15 (7-52) U/L Alkaline Phosphatase 49 (34-104) U/L Albumin 4.2 (3.4-5.0) gm/dl Urine 04/18/21 Range/Units 17:20 Urine Color Yellow Urine Appearance Clear (Clear) Urine pH 5.5 (4.5-7.5) Ur Specific [place] 1.016 (1.000-1.030) Urine Protein 1+ H (Negative) Urine Glucose (UA) 1+ H (Negative) Diagnostic Findings Chest X-Ray 04/18/21 17:03 XR chest 1V portable CLINICAL HISTORY: Dyspnea TECHNIQUE: Single frontal radiograph of the chest was obtained. Comparison: None available at the time of this dictation. FINDINGS: No lines and tubes are seen. The cardiomediastinal silhouette is normal. The lungs are clear. No evidence of pleural effusion or pneumothorax. IMPRESSION: No acute chest disease. ACT 112: Negative or not required by law. Electronically signed by: John Sanders M.D. 04/18/2021 5:42 PM ECG Additional Comments: sinus tachycardia at 106 bpm Code Status & VTE Plan VTE Prophylaxis Plan VTE Prophylaxis will be ordered: Yes Supervising Physician Co-Signing Physician Notes Care coordinated with Kenia Saha PA-C. Agree with above note. Patient seen and examined. Please refer to her notes for full details. Vital signs reviewed. Physical exam: General exam: Alert and oriented. Not in acute distress. CVS: S1 and S2 heard, regular rate and rhythm, no murmurs. RS: Clear to auscultation, no wheezing or crackles. ABD: Soft, bowel sounds present, nontender, no distention. ELECTRIC MOTOR REPAIRING SUPERVISOR: Nonfocal. EXT: No edema, no erythema. Labs: Reviewed. Assessment and plan: 31F who [address] There was generator in basement. Patient felt lightheaded and visual changes she ran out but seems lost consciousness and layed on the snow for sometime, then she went to neighbour's house. Seemed confused. EMS was called and cooximeter measured 25%. She was placed on non breather and brought to Er. She was hypothermic . Improved with warm fluids and sailaja hugger. Lactic acid on presentation 5.1. Carboxyhemoglobin in ER improved to 0.4%.Currently alert and awake and oriented. Says she had chest pain earlier but that improved. Currently no sob, no headache. no cough. Hemodynamics stable.Exam: Cvs 1 and s2 heard no murmurs, RS cta b/l no added sounds, ABd Benign, ELECTRIC MOTOR REPAIRING SUPERVISOR non focal, Ext no edema or erythema. To continue oxygen supplementation and supportive care. Repeat lactic acid 0.7. Monitor in tele. Other diagnosis and plan of care as per Kenia Saha PA-C. Joshua pride MD.
[2021-04-18] MEDS ORDERED: ONDANSETRON INJ 2 MG/ML 2 ML VIAL IV PRN (21:46)
[2021-04-18] MEDS ORDERED: POLYETHYLENE (MIRALAX) 17 GM PACK PO PRN (21:46)
[2021-04-18] MEDS ORDERED: ACETAMINOPHEN 325 MG TAB PO PRN (21:46)
[2021-04-18] MEDS: BUPRENORPHINE/NALOXONE 8/2 MG TAB SL SCH (22:14)
[2021-04-19 05:44] LABS: Hematocrit (blood only) 38.1 % (37-47); Hemoglobin 13.1 g/dL (12.0-16.0); Mean Corpuscular Hemoglobin 32.9 pg (25-34); Mean Corpuscular Hgb Conc 34.4 g/dL (32-36); Mean Corpuscular Volume 95.7 fL (80-100); Mean Platelet Volume 9.4 fL (7.4-10.4); Platelet Count 232 K/uL (130-400); RDW Coefficient of Variation 12.8 % (11.5-14.5); RDW Standard Deviation 44.4 fL (36.4-46.3); Red Blood Count 3.98 M/uL (4.2-5.4); White Blood Count 7.02 K/uL (4.8-10.8)
[2021-04-19 05:56] LABS: BUN Creatinine Ratio 15.2 (10-20); Calcium 8.6 mg/dl (8.5-10.1); Creatinine Clr Calc Pharmacy 122.8 ml/min; Est GFR (African American) 134.5 ml/min; Est GFR (Non-African American) 116.1 ml/min; Potassium 4.3 mmol/L (3.5-5.1)
[2021-04-19] MEDS: BUPRENORPHINE/NALOXONE 8/2 MG TAB SL SCH (09:46)
--- NOTE | 2021-04-19 09:48 | Electrocardiogram Report ---
Test Reason : Blood Pressure : / mmHG Vent. Rate : 106 BPM Atrial Rate : 106 BPM P-R Int : 144 ms QRS Dur : 084 ms QT Int : 360 ms P-R-T Axes : 058 070 073 degrees QTc Int : 478 ms Sinus tachycardia Otherwise normal ECG No previous ECGs available Confirmed by Taran Ga ([id number]) on 04/19/2021 9:47:53 AM Referred By: REFERRED SELF Confirmed By:Antione Ga
--- NOTE | 2021-04-19 10:12 | Discharge Summary ---
Date of Service April 19, 2021 Admission HPI Per Admitting Provider This is a 31yo F with a PMH of scoliosis, tobacco use who presents with AMS in setting of carbon monoxide exposure. The patient was dropped off at a friend's house earlier today, which had a generator running indoors in the basement. Patient is unsure how long she was inside before becoming lightheaded with visual changes, at which point she ran outside into the snow and lost consciousness. Patient is unsure how low she was lying in the snow before she came to and walked to a neighbors house, who called EMS due to her altered state. Was initially hypothermic with a core temperature of 92 as well as tachycardic and hypotensive. EMS noted the cooximeter measured a concentration of 25% for the patient. Vital signs improved with non-rebreather and administration of warm fluids. Mentation was better by time of arrival and is back to baseline by time of evaluation. BP and HR now within normal range. Patient is saturation at 98% on 15 L non-rebreather. Currently denies headache or lightheadedness. No fever or chills. No chest pain, palpitations, nausea, vomiting, abdominal pain, dysuria, diarrhea or constipation. No recent illness. Only home medication is Suboxone, which she takes for history of scoliosis. Admission Exam Per Admitting Provider General Appearance:WD/WN, vitals as above, NAD, sitting up in bed, pleasant, conversing easily, wearing non-rebreather Head: normocephalic, atraumatic Eyes:normal inspection, PERRL, conjunctivae normal, anicteric sclerae ENT: external ear and nose normal, oropharynx normal Neck: normal visual inspection, trachea midline, no thyromegaly Respiratory:normal respiratory effort, lungs clear to auscultation, no wheeze, rales, rhonchi. No accessory muscle use Cardiovascular: regular rate, rhythm, no murmur, normal peripheral pulses, no BLE edema. Vessels: no JVD Chest: normal inspection of chest Abdomen/GI: normal bowel sounds, soft, nontender, no hepatosplenomegaly Extremities/Musculoskeletal: no cyanosis or clubbing, extremities motor strength 5/5 Neurologic: PERRL, EOMI, accommodation nl, no face palsy, no dysarthria, CN's II-XI intact bilaterally and moves all extremities Psychiatric:A+Ox3, euthymic affect Skin: no rashes, normal color, warm/dry Principal Diagnosis Carbon monoxide poisoning Syncope Discharge Exam See below Discharge Data Allergies Allergy/AdvReac Type Severity Reaction Status Date / Time No Known Allergies Allergy Verified 04/18/21 18:18 Consultations 04/18/21 18:39 ED Decision to Admit Stat Current Diagnoses Elevated white blood cell count, unspecified (04/18/21) Acidosis (04/18/21) Scoliosis, unspecified (04/18/21) Altered mental status, unspecified (04/18/21) Syncope and collapse (04/18/21) Toxic effect of carbon monoxide from unspecified source, accidental (uninte ntional), initial encounter (04/18/21) Hypothermia, initial encounter (04/18/21) Allergies No Known Allergies Allergy (Verified 04/18/21 18:18) Height/Weight/Isolation Height 5 ft 4 in Weight 78.3 kg Chemistry 04/18/21 04/19/21 17:16 05:10 Sodium 137 137 Potassium 4.1 4.3 Chloride 110 H 108 H Carbon Dioxide 16 L 23 Anion Gap 11 6 BUN 11 10 Creatinine 0.84 0.66 Glucose 71 87 Urinalysis 04/18/21 17:20 Urine Color Yellow Urine Appearance Clear Urine pH 5.5 Ur Specific [place] 1.016 Urine Protein 1+ H Urine Glucose (UA) 1+ H Urine Ketones Trace H Urine Blood Negative Urine Nitrite Negative Urine Bilirubin Negative Hospital Course (1) AMS (altered mental status): (2) Toxic effect of carbon monoxide: (3) Syncope: This is a 31yo F with a PMH of scoliosis, tobacco use who presents with AMS in setting of carbon monoxide exposure. Carbon monoxide exposure from basement with generator running indoors Patient went outside once she became dizzy and had syncopal event, found lying in the snow, minimally responsive EMS noted the cooximeter measured a concentration of 25% for the patient Mentation and vitals have improved on non-rebreather and is back to mentation baseline Leukocytosis of 20, initial ABG pH of 7.28, lactate of 5 ECG with sinus tachycardia of 106, troponin negative Repeat carboxyhemoglobin improved to 0.4%, transitioned to oxymask 6L Now comfortable on room air DC home today (4) Hypothermia: Resolved (5) Lactic acidosis: (6) Leukocytosis: Lactate of 5.1, leukocytosis of 14. Likely reactive given CO, hypothermia, hypoperfusion No clinical concern for infection - CXR without acute process, UA unremarkable. No indication for abx at this time Repeat lactate this evening (7) Scoliosis: Continue home Suboxone BID DVT Ppx: han eden Code status: FULL PCP: Kristel Dispo: DC home today ROS-No Headache, No Visual Changes, No Nausea, No Vomiting, No Fever, No Chills, No Neck Pain or Stiffness, No Chest Pain, No Palpitations, No SOB, No MCKINNEY, No Cough, No Sputum, No Wheezing, No Abdominal Pain, No Diarrhea, No Hematemesis, No Hemoptysis, No Unexpected Weight Loss, No Flank pain, No Melena, No Hematochezia, No Frequency, No Urgency, No Burning, No Hematuria, No Rashes, No Diaphoresis. Appetite is Normal Physical Exam Gen-AAO x 3, NAD, Afebrile Head-NCAT, EOMI, PERRLA, Anicteric Sclera, No Posterior Pharyngeal Erythema Neck-Supple, No JVD, No Thyromegaly, No Masses, No LAD, No Bruits Lungs-Clear to Auscultation Bilaterally, No Rales, No Rhonchi, No Wheezing, No Crepitus Chest-No S4, +S1, +S2, No S3, No Murmurs, No Rubs, No Gallops, No Ectopy Abdomen-Soft, Bowel Sounds Present, Non Tender, Non Distended, No Hepatomegaly, No Splenomegaly, No Palpable Masses, No Rebound, No Rigidity, No Guarding Musculoskeletal-Full Range of Motion Bilaterally, No CVAT Extremities-No Cyanosis, No Clubbing, No Edema Nuero-Cranial Nerves II-XII grossly intact, Motor WNL, DTRs WNL, Strength WNL, Non Focal Psych-Normal Mood Total Time Total Time Spent Total Time Spent (In Minutes): 45 mins Discharge Plan Discharge Items Patient Disposition: Home - Self-Care Reason For Visit: CARBON MONOXIDE EXPOSURE Discharge Diagnosis: Carbon monoxide poisoning Syncope Hypothermia Condition on Discharge: Good Activity: Resume your previous activity Lifting: Gradually increase as tolerated Bathing: No limitations Sexual Activity: When tolerated Exercise/Sports: Gradually increase as tolerated Driving/Machine Use: No limitations Weightbearing: Full weightbearing Non-emergency contact: Primary Care Provider Call non-emergency contact if: you have any medication questions Follow-up/Referrals: Moon Tovar PA-C [Physician Veneer Stock Grader] - (Date & Time 04/23/2021 11:20 AM Provider Moon Tovar PA-C Family Medicine [address] Poonam Cabezas ) Diet: Regular Addtl Attending Provider Instructions: None Pending Studies at Discharge: No Stand-Alone Forms: My [employer], Smoking Cessation Medications and DC Order Prescriptions: Continued buprenorphine-naloxone 8-2 mg film 1 film sublingual BID RF: 0 Discharge Orders: Discharge Order (Routine); Ordered 04/19/21 Ordered By: Krishna Hodges Admission Data Admit Date/Time: 04/18/21 18:24 Attending Provider: Joshua Da Silva Admit Provider: Joshua Da Silva Primary Care Provider: PCP,NO Other Providers: Krishna Hodges
[2021-04-20 22:57] LABS: Amphetamine Urine, Confirm 377 ng/mL (<250); Methamphetamine, Ur Confirm 821 ng/mL (<250)
== END 2021-04-19 13:20 | disposition home or self-care (01) | DRG 918 ==
LOC: ED 17:01 → EDINP 18:24